=== PATIENT | female | born 1950 | race African-American/Black ===

== ENCOUNTER → 2017-03-24 | Outpatient (CLI) | payer OTHER, MEDICARE | END | disposition home or self-care (01) | LOC: MAMMO 13:40 | DX: Z12.31 Encounter for screening mammogram for malignant neoplasm of breast (principal) | CPT/HCPCS: 77067 ==

== ENCOUNTER → 2019-11-29 | Outpatient (CLI) | payer BC, MEDICARE ==
--- NOTE | 2019-11-29 18:20 | RAD ---
BILATERAL SCREENING MAMMOGRAM, 3-D History: Routine screening. Comparison: 03/24/2017. Technique: MLO and CC digital tomosynthesis (3D) images obtained. Radiologist reviewed these images on dedicated workstation. Findings: Breast Tissue Density B : There are scattered areas of fibroglandular density. No suspicious calcific aortic distortion.. Mass is present at the left outer breast 3:00 region 5.1 cm from the nipple. This measures up to 0.7 cm diameter and is new since the previous exam. On pelvis and this is imaging, there is a mass at the 9:00 region 6 cm from nipple and this measures 0.8 cm diameter. It is mildly lobulated and of relatively low density. IMPRESSION: Left breast masses at 3:00 and 9:00. Ultrasound recommended. Spot compression imaging may be needed.. BI-RADS Category 0: Incomplete: Need additional imaging evaluation. The images were reviewed with computer-aided detection. Patient information is entered into reminder system with a target due date for the next screening mammogram. Mammography is the most sensitive method for finding small breast cancers, but it does not detect them all and is not a substitute for careful clinical examination. A negative mammogram does not negate a clinically suspicious finding and should not result in delay in biopsying a clinically suspicious abnormality. "Our facility is accredited by the [employer] Mammography [employer]." Electronically signed by: Campos Collins MD (11/29/2019 6:18 PM) [facility]
== END | disposition home or self-care (01) ==
LOC: MAMMO 12:06
PROVIDERS: ATTEND Family Medicine
DX: Z12.31 Encounter for screening mammogram for malignant neoplasm of breast (principal); N64.89 Other specified disorders of breast
CPT/HCPCS: 77063; 77067

== ENCOUNTER → 2019-12-13 | Outpatient (CLI) | payer BC, MEDICARE ==
--- NOTE | 2019-12-13 14:40 | RAD ---
DATE: 12/13/2019 12:57 PM EXAM: BREAST LEFT HISTORY: Left breast callback for mass COMPARISON: Mammogram November 29, 2019 Left breast targeted ultrasound. FINDINGS: Rounded well-circumscribed hypoechoic lesion within the left breast 9:00 position approximately 6 cm from the nipple measures 0.8 x 0.4 x 0.7 cm. No significant posterior shadowing. Corresponds with mammographic finding. Irregular hypoechoic mass left breast 4:00 position approximately 5 cm from the nipple with angular margins and wider than tall measures 0.6 x 0.5 x 0.4 cm. No significant posterior shadowing. Small benign-appearing lymph nodes within the left axilla. IMPRESSION: Left breast hypoechoic irregular mass with angular margins 4:00 position. Recommend ultrasound-guided biopsy. Rounded hypoechoic masses at the 9:00 position. Recommend 6 month follow-up ultrasound depending on biopsy results. BI-RADS CATEGORY: 4 SUSPICIOUS ABNORMALITY- BIOPSY SHOULD BE CONSIDERED RECOMMENDED FOLLOW-UP: Left breast ultrasound-guided biopsy 4:00 mass. Results were discussed with the patient agreed with the plan. Technologist will facilitate the scheduling of the biopsy. PQRS compliance statement: Patient information was entered into a reminder system with a target due date for the next mammogram. Mammography is a sensitive method for finding small breast cancers, but it does not detect them all and is not a substitute for careful clinical examination. A negative mammogram does not negate a clinically suspicious finding and should not result in delay in biopsying a clinically suspicious abnormality. "Our facility is accredited by the [employer] Mammography [employer]." TERRELL
== END ==
LOC: US 12:50
PROVIDERS: ATTEND Family Medicine
DX: R92.8 Other abnormal and inconclusive findings on diagnostic imaging of breast (principal); N63.23 Unspecified lump in the left breast, lower outer quadrant
CPT/HCPCS: 76641

== ENCOUNTER → 2020-01-10 | Outpatient (CLI) | payer BC, MEDICARE ==
--- NOTE | 2020-01-10 13:53 | RAD ---
EXAM: Sonographic guided left breast biopsy and biopsy clip placement; left breast postbiopsy mammogram. HISTORY: 69-year-old female presents for sonographic and biopsy of a lesion within the right breast demonstrated on a sonogram performed on 11/29/2019. TECHNIQUE: The risks of the procedure discussed with the patient and written and verbal consent was obtained. A timeout was performed. Sonographic imaging of the right breast was performed and the lesion of concern at the 4:00 position 5 cm from the nipple was identified. This measures 6 mm in maximum dimension and is taller than wide on antiradial images. The skin overlying this region was sterilely prepped, draped and infiltrated with 1 percent lidocaine. Multiple core samples were obtained through the lesion with sonographic guidance. A biopsy clip was advanced into the lesion. Minimal compression was maintained until hemostasis was achieved. A sterile measures placed. A post plasty mammogram demonstrates the biopsy clip in expected position. IMPRESSION: Sonographic guided biopsy of a 6 mm lesion at the 4:00 position of the left breast and biopsy clip placement. An addendum to this report will be submitted when pathology results are available. Electronically signed by: Amparo Cramer MD (01/10/2020 1:50 PM) [id number]
--- NOTE | 2020-01-15 11:07 | PATHOLOGY ---
[facility] Accession Number: [id number] . 01 Material submitted: . breast - LEFT BREAST MASS CORE BIOPSY. Modifiers: left . 01 Clinical history: . LEFT BREAST MASS . 02 Diagnosis: "Left breast mass core BX", biopsy: - Benign breast with fibrocystic changes including stromal fibrosis, cyst formation, columnar cell hyperplasia and duct ectasia; no cytologic atypia or malignancy seen. (See comment). (CLW:re; 01/11/2020) R 01/11/2020 1227 Local . 02 Comment: Properly controlled immunohistochemical stains are performed. . Block A3: CD68 - highlights the histiocytes within the ectatic duct; AE1/AE3 - stains benign breast epithelium. . Clinical and radiographic correlation is required. The case is co-reviewed with Dr. Arlyn Angel. . (CLW:re; 01/11/2020) . 02 Electronically signed: . Sara Hill MD, Pathologist NPI- [id number] . 01 Gross description: . The specimen is received in formalin, labeled "Paty Velez, left breast biopsy". Received are multiple needle cores of fibrofatty tissue measuring 1.5 x 1.0 x 0.2 cm in aggregate dimensions. The specimen is submitted entirely in cassettes A1 through A3. The cold ischemic time is 1 minute. The total formalin fixation time is 8 hours and 24 minutes. ([facility]; 01/10/2020) QAC/QAC 01/10/2020 1720 Local . 02 Pathologist provided ICD-10: N60.12, N60.32, N62, N60.42 . 02 CPT . 216199, [id number], [id number] Specimen Comment: A courtesy copy of this report has been sent to [phone], [phone] Specimen Comment: [id number] Specimen Comment: Report sent to / DR KENDALL Performed at: [address] [facility], [place] [id number] MD Joesph Welsh MD Phone: [phone] Performed at: 02 [facility] [address] [place], [place] [id number] MD Regan King MD Phone: [phone]
== END | disposition home or self-care (01) ==
LOC: US 12:44
PROVIDERS: ATTEND Family Medicine
DX: N63.20 Unspecified lump in the left breast, unspecified quadrant (principal); R92.8 Other abnormal and inconclusive findings on diagnostic imaging of breast
CPT/HCPCS: 19083; 77065; 88305; 88341; 88342; C1713; 19081; 76942

== ENCOUNTER → 2021-02-05 | Outpatient (CLI) | payer MEDICARE ==
--- NOTE | 2021-02-05 10:24 | RAD ---
EXAMINATION: US DPLX VENOUS EXTREMITY LOWER RT (LOWER EXTREMITY VENOUS ULTRASOUND) CLINICAL HISTORY: Right lower extremity pain TECHNIQUE: Sonographic grayscale images obtained of the right lower extremity deep venous system with color flow Doppler, compression, and augmentation techniques as indicated. Images obtained and stor ed in a permanent archive. COMPARISON: None FINDINGS: No evidence of absent flow or incompressibility within the common femoral vein, femoral vein, or popl iteal vein. Visualized calf veins appear patent on limited evaluation. IMPRESSION: No evidence of right lower extremity DVT. Electronically signed by: Trent Hooker DO (02/05/2021 10:22 AM) [id number]
== END ==
LOC: US 09:20
PROVIDERS: ATTEND Internal Medicine
DX: M25.561 Pain in right knee (principal); M25.461 Effusion, right knee; R09.89 Other specified symptoms and signs involving the circulatory and respiratory systems; R60.0 Localized edema
CPT/HCPCS: 93971